=== PATIENT | male | born 1955 | race Caucasian/White ===

== ENCOUNTER 2019-06-08 16:47 | Emergency (ER) | payer OTHER ==
[~2019-06-08] VITALS: Ht 170.2 cm; Wt 100.2 kg
[2019-06-08 16:57] VITALS: Ht 170.2 cm; Wt 100.2 kg
[2019-06-08 17:39] VITALS: BP 164/89
== END 2019-06-08 17:39 | disposition home or self-care (01) ==
LOC: ED 16:47
DX: J02.9 Acute pharyngitis, unspecified (principal); I10 Essential (primary) hypertension; E78.00 Pure hypercholesterolemia, unspecified; M54.2 Cervicalgia; R07.0 Pain in throat
CPT/HCPCS: 82962